=== PATIENT | male | born 1940 | race Caucasian/White ===

== ENCOUNTER 2018-03-26 08:00 | Inpatient (IN) | payer MEDICARE ==
[~2018-03-26] VITALS: Ht 180.3 cm; Wt 100.0 kg
[~2018-03-26 08:00] MED LIST: ATEN-169 PO; EZET10TA14 PO; NAPR-1166 PO; SIMV20TA5 PO
[2018-03-26 10:45] LABS: BASOPHILS % (AUTO) 0.1 % (0-1); EOSINOPHILS % (AUTO) 0 % (0-6); HEMATOCRIT 41.4 % (42.0-52.0); HEMOGLOBIN 14.6 g/dl (14.0-17.9); LYMPHOCYTES # (AUTO) 1.1 X10'3 (1.1-4.8); LYMPHOCYTES % (AUTO) 9.2 % (21-51); MEAN CORPUSCULAR HEMOGLOBIN 30.4 PG (27.0-31.0); MEAN CORPUSCULAR HGB CONC 35.2 % (33.0-36.5); MEAN CORPUSCULAR VOLUME 86.3 FL (78-98); MEAN PLATELET VOLUME 7.6 FL (7.4-10.4); MONOCYTES # (AUTO) 1.4 X10'3 (0-0.9); MONOCYTES % (AUTO) 10.9 % (2-12); NEUTROPHILS # (AUTO) 9.9 X10'3 (1.8-7.7); NEUTROPHILS % (AUTO) 79.8 % (42-75); PLATELET COUNT 205 X10'3 (140-440); RED CELL DISTRIBUTION WIDTH 13.6 % (11.5-14.5); WHITE BLOOD COUNT 12.4 X10'3 (4.5-11.0)
[2018-03-26 10:54] LABS: PARTIAL THROMBOPLASTIN TIME 25 SECONDS (22-32); PROTHROMBIN TIME 10.5 SECONDS (9.0-12.0)
[2018-03-26 10:57] LABS: ALANINE AMINOTRANSFERASE 42 U/L (12-78); ALBUMIN 3.8 G/DL (3.4-5.0); ALBUMIN/GLOBULIN RATIO 1.2 (1.1-1.5); ALKALINE PHOSPHATASE 78 IU/L (46-116); ANION GAP 12 (8-16); ASPARTATE AMINO TRANSFERASE 22 U/L (10-37); BILIRUBIN,TOTAL 1.8 MG/DL (0.1-1.0); BLOOD UREA NITROGEN 18 MG/DL (7-18); BUN/CREATININE RATIO 13.7 (5.4-32.0); CALCIUM 9.3 MG/DL (8.5-10.1); CHLORIDE 105 MMOL/L (99-107); CREATININE 1.31 MG/DL (0.60-1.10); GLUCOSE 125 MG/DL (70-104); POTASSIUM 3.6 MMOL/L (3.5-5.1); SODIUM 139 MMOL/L (135-145); TOTAL CARBON DIOXIDE 22.5 MMOL/L (24-32); eGFR 53 ML/MIN
[2018-03-26 11:01] LABS: TROPONIN I < 0.04 NG/ML (0.0-0.05)
[2018-03-26] MEDS ORDERED: TAMS0.4C32 PO (13:05)
[2018-03-26] MEDS ORDERED: magnesium 4gm in 100ml NS 100 ML IV PRN (13:45)
[2018-03-26] MEDS ORDERED: potassium Cl 20 mEq SR tablet PO PRN ×2 (13:45)
[2018-03-26] MEDS ORDERED: ondansetron/PF 4mg/2ml inj IV PRN (13:45)
[2018-03-26] MEDS ORDERED: mag hydrox/Alum hydrox/simeth 30ml oral suspension PO PRN (13:45)
[2018-03-26] MEDS ORDERED: magnesium Cl slow-release 64mg tablet PO PRN (13:45)
[2018-03-26] MEDS ORDERED: magnesium hydroxide 30ml (MOM) UD suspension PO PRN (13:45)
[2018-03-26] MEDS ORDERED: potassium Cl 40MEQ/NS 500ml 500 ML IV PRN ×2 (13:45)
[2018-03-26] MEDS ORDERED: magnesium 1gm/100ml D5W IVPB 50 ML IV PRN (13:45)
[2018-03-26] MEDS: normal saline 1000ml 1,000 ML IV SCH ×3 (14:51→23:44)
[2018-03-26 16:30] VITALS: BP 124/76
[2018-03-26] MEDS: acetaminophen 325mg tablet PO PRN (17:49)
[2018-03-26 20:00] VITALS: BP_SYST 102; BP_SYST 118; BP_SYST 90; BP_DIAS 65; BP_DIAS 66; BP_DIAS 76
[2018-03-26] MEDS ORDERED: aspirin 325mg tablet PO ONE (20:10)
[2018-03-26] MEDS: heparin, porcine 5000 units/ml vial SQ SCH (20:32)
[2018-03-26] MEDS: atorvastatin 20mg tablet PO SCH (21:34)
[2018-03-26] MEDS: tamsulosin 0.4mg capsule PO SCH (21:34)
[2018-03-26 22:00] VITALS: BP 128/73
[2018-03-27 02:00] VITALS: BP 128/81
[2018-03-27] MEDS: normal saline 1000ml 1,000 ML IV SCH ×5 (02:13→23:06)
[2018-03-27 05:42] LABS: BASOPHILS % (AUTO) 0.3 % (0-1); EOSINOPHILS # (AUTO) 0.1 X10'3 (0-0.9); EOSINOPHILS % (AUTO) 1.5 % (0-6); HEMATOCRIT 36.6 % (42.0-52.0); HEMOGLOBIN 12.6 g/dl (14.0-17.9); LYMPHOCYTES # (AUTO) 1.7 X10'3 (1.1-4.8); LYMPHOCYTES % (AUTO) 19.5 % (21-51); MEAN CORPUSCULAR HEMOGLOBIN 30.2 PG (27.0-31.0); MEAN CORPUSCULAR HGB CONC 34.3 % (33.0-36.5); MEAN CORPUSCULAR VOLUME 87.9 FL (78-98); MEAN PLATELET VOLUME 8.3 FL (7.4-10.4); MONOCYTES # (AUTO) 1.3 X10'3 (0-0.9); MONOCYTES % (AUTO) 15.2 % (2-12); NEUTROPHILS # (AUTO) 5.4 X10'3 (1.8-7.7); NEUTROPHILS % (AUTO) 63.5 % (42-75); PLATELET COUNT 181 X10'3 (140-440); RED BLOOD COUNT 4.16 X10'6 (4.70-6.10); RED CELL DISTRIBUTION WIDTH 13.9 % (11.5-14.5); WHITE BLOOD COUNT 8.5 X10'3 (4.5-11.0)
[2018-03-27 06:00] VITALS: BP 103/63
[2018-03-27 06:06] LABS: ANION GAP 11 (8-16); BLOOD UREA NITROGEN 11 MG/DL (7-18); BUN/CREATININE RATIO 9.7 (5.4-32.0); CALCIUM 8.7 MG/DL (8.5-10.1); CHLORIDE 107 MMOL/L (99-107); CHOL/HDL RATIO 2.8 (0.00-4.99); CHOLESTEROL 117 MG/DL (0-200); CREATININE 1.13 MG/DL (0.60-1.10); GLUCOSE 115 MG/DL (70-104); HDL CHOLESTEROL 42 MG/DL (35-60); LDL CHOLESTEROL 68 MG/DL (50-100); MAGNESIUM 1.4 MG/DL (1.5-2.4); POTASSIUM 3.5 MMOL/L (3.5-5.1); SODIUM 141 MMOL/L (135-145); TOTAL CARBON DIOXIDE 22.9 MMOL/L (24-32); TRIGLYCERIDES 96 MG/DL (20-135); eGFR 63 ML/MIN
[2018-03-27] MEDS: atenolol 25mg tablet PO SCH ×2 (07:37→20:55)
[2018-03-27] MEDS: ezetimibe 10mg tablet PO SCH (07:37)
[2018-03-27] MEDS: heparin, porcine 5000 units/ml vial SQ SCH ×2 (07:38→20:55)
[2018-03-27] MEDS: K and/or MAG REPLACEMENT MC SCH (07:39)
[2018-03-27 10:00] VITALS: BP 128/71
[2018-03-27 12:00] VITALS: BP_SYST 115; BP_SYST 123; BP_SYST 128; BP_DIAS 71; BP_DIAS 75
[2018-03-27] MEDS: ceFAZolin 1GM/D5W- ADD-VANTAGE 50 ML IV SCH ×2 (15:57→23:59)
[2018-03-27] MEDS: acetaminophen 325mg tablet PO PRN (19:40)
[2018-03-27 20:51] VITALS: BP 120/81
[2018-03-27] MEDS: atorvastatin 20mg tablet PO SCH (20:55)
[2018-03-27] MEDS: tamsulosin 0.4mg capsule PO SCH (20:55)
[2018-03-27 22:00] VITALS: BP 124/79
[2018-03-28 02:00] VITALS: BP 131/70
[2018-03-28] MEDS: normal saline 1000ml 1,000 ML IV SCH ×2 (05:44→11:10)
[2018-03-28 06:20] LABS: ALBUMIN 2.9 G/DL (3.4-5.0); ANION GAP 8 (8-16); BLOOD UREA NITROGEN 13 MG/DL (7-18); BUN/CREATININE RATIO 11.3 (5.4-32.0); CALCIUM 8.3 MG/DL (8.5-10.1); CHLORIDE 109 MMOL/L (99-107); CREATININE 1.15 MG/DL (0.60-1.10); GLUCOSE 101 MG/DL (70-104); MAGNESIUM 1.6 MG/DL (1.5-2.4); POTASSIUM 3.8 MMOL/L (3.5-5.1); SODIUM 142 MMOL/L (135-145); TOTAL CARBON DIOXIDE 25.2 MMOL/L (24-32); eGFR 62 ML/MIN
[2018-03-28 07:05] LABS: HEMATOCRIT 37.8 % (42.0-52.0); HEMOGLOBIN 12.8 g/dl (14.0-17.9); MEAN CORPUSCULAR HEMOGLOBIN 30.2 PG (27.0-31.0); MEAN CORPUSCULAR HGB CONC 33.8 % (33.0-36.5); MEAN CORPUSCULAR VOLUME 89.2 FL (78-98); RED BLOOD COUNT 4.24 X10'6 (4.70-6.10); WHITE BLOOD COUNT 6.5 X10'3 (4.5-11.0)
[2018-03-28 07:06] LABS: BASOPHILS % (AUTO) 0.6 % (0-1); EOSINOPHILS # (AUTO) 0.2 X10'3 (0-0.9); EOSINOPHILS % (AUTO) 3.3 % (0-6); LYMPHOCYTES # (AUTO) 1.4 X10'3 (1.1-4.8); MEAN PLATELET VOLUME 7.8 FL (7.4-10.4); MONOCYTES # (AUTO) 0.9 X10'3 (0-0.9); MONOCYTES % (AUTO) 13.7 % (2-12); NEUTROPHILS # (AUTO) 3.9 X10'3 (1.8-7.7); NEUTROPHILS % (AUTO) 60.4 % (42-75); PLATELET COUNT 193 X10'3 (140-440); RED CELL DISTRIBUTION WIDTH 13.6 % (11.5-14.5)
[2018-03-28] MEDS: K and/or MAG REPLACEMENT MC SCH (07:47)
[2018-03-28] MEDS: atenolol 25mg tablet PO SCH (07:47)
[2018-03-28] MEDS: ezetimibe 10mg tablet PO SCH (07:52)
[2018-03-28] MEDS: heparin, porcine 5000 units/ml vial SQ SCH (07:53)
[2018-03-28] MEDS: ceFAZolin 1GM/D5W- ADD-VANTAGE 50 ML IV SCH (07:53)
[2018-03-28 10:00] VITALS: BP 112/62
[2018-03-28] MEDS ORDERED: CEPH250T PO (12:23)
[2018-03-28] MEDS ORDERED: ASPI-1265 PO (12:24)
[2018-03-28] MEDS ORDERED: lactobacillus rhamnosus 10,000 MMU CELLS/CAPSULE PO SCH (20:00)
== END 2018-03-28 13:31 | disposition home or self-care (01) | DRG 603 ==
LOC: ER 08:00 → ED HOLD 12:24 → ORTHO 4S 15:43
PROVIDERS: ADMIT Family Medicine; ATTEND Internal Medicine
DX: L03.114 Cellulitis of left upper limb (principal); M19.032 Primary osteoarthritis, left wrist; E78.00 Pure hypercholesterolemia, unspecified; E78.5 Hyperlipidemia, unspecified; N40.0 Benign prostatic hyperplasia without lower urinary tract symptoms; G89.29 Other chronic pain; I10 Essential (primary) hypertension; R41.0 Disorientation, unspecified; I25.10 Atherosclerotic heart disease of native coronary artery without angina pectoris; I25.2 Old myocardial infarction; Z79.82 Long term (current) use of aspirin; Z79.899 Other long term (current) drug therapy; Z86.73 Personal history of transient ischemic attack (TIA), and cerebral infarction without residual deficits
CPT/HCPCS: 36415; 70450; 70551; 71045; 73110; 80048; 80053; 80061; 82948; 83735; 84484; 85025; 85610; 85730; 87070; 93005; 93306; 93880; 97116; 97161; 97530; 99285; J0690; J1644; J7030

== ENCOUNTER 2020-10-14 16:26 | Inpatient (IN) | payer BC, MEDICARE ==
[~2020-10-14] VITALS: Ht 180.3 cm; Wt 91.8 kg
[~2020-10-14 16:26] MED LIST changes: -EZET10TA14 PO; +EZET10TA6 PO; -NAPR-1166 PO; +SIMV-42 PO; -SIMV20TA5 PO; +TAMS0.4C32 PO
--- NOTE | 2020-10-14 16:42 | NUR ---
Dr. Carter, Ru RT, Danae RN, Blade RN, Pushpa RN at bedside 1641 8 etomidate, Hr 202, 84/58, RR 12, 98% 5L 1642 Syncronized shock 100J delivered by Dr. Carter, NSR 69, RR 8, sp02 98% 5L, BP 91/60 1644 EKG Obtained 1648 HR SB 57, Sp02 95% on 5L, pt responsive to voice
[2020-10-14] MEDS ORDERED: normal saline 1000ML IV soln IVB ONE (16:50)
[2020-10-14] MEDS ORDERED: amiodarone/D5 360MG/200ML BAG 200 ML IV ONE ×2 (16:50→17:20)
[2020-10-14] MEDS ORDERED: aspirin 81mg tab.chew PO ONE (16:50)
[2020-10-14] MEDS ORDERED: amiodarone 150mg/dext, iso-os 100 ML IV ONE (16:50)
[2020-10-14 16:58] LABS: BASOPHILS # (AUTO) 0.1 X10'3 (0-0.2); BASOPHILS % (AUTO) 0.5 % (0-1); EOSINOPHILS # (AUTO) 0.2 X10'3 (0-0.9); EOSINOPHILS % (AUTO) 2.1 % (0-6); HEMATOCRIT 40.9 % (42.0-52.0); HEMOGLOBIN 13.3 g/dl (14.0-17.9); LYMPHOCYTES % (AUTO) 35.4 % (21-51); MEAN CORPUSCULAR HEMOGLOBIN 29.1 PG (27.0-31.0); MEAN CORPUSCULAR HGB CONC 32.5 g/dL (33.0-36.5); MEAN CORPUSCULAR VOLUME 89.6 FL (78-98); MEAN PLATELET VOLUME 8.5 FL (7.4-10.4); PLATELET COUNT 238 X10'3 (140-440); RED BLOOD COUNT 4.57 X10'6 (4.70-6.10); RED CELL DISTRIBUTION WIDTH 14.6 % (11.5-14.5); WHITE BLOOD COUNT 11.3 X10'3 (4.5-11.0)
[2020-10-14] MEDS ORDERED: etomidate 2mg/ml inj. ONE (17:00)
[2020-10-14 17:13] LABS: PARTIAL THROMBOPLASTIN TIME 23 SECONDS (22-32)
[2020-10-14 17:15] LABS: ALANINE AMINOTRANSFERASE 53 U/L (12-78); ALBUMIN 3.5 G/DL (3.4-5.0); ALBUMIN/GLOBULIN RATIO 1.1 (1.1-1.5); ALKALINE PHOSPHATASE 72 IU/L (46-116); ANION GAP 10 (8-16); ASPARTATE AMINO TRANSFERASE 53 U/L (10-37); BILIRUBIN,TOTAL 0.6 MG/DL (0.1-1.0); BLOOD UREA NITROGEN 18 MG/DL (7-18); BUN/CREATININE RATIO 14.1 (5.4-32.0); CALCIUM 8.6 MG/DL (8.5-10.1); CHLORIDE 108 MMOL/L (99-107); CREATININE 1.28 MG/DL (0.60-1.10); GLUCOSE 148 MG/DL (70-104); POTASSIUM 3.3 MMOL/L (3.5-5.1); SODIUM 143 MMOL/L (135-145); TOTAL CARBON DIOXIDE 25.1 MMOL/L (24-32); TOTAL PROTEIN 6.6 G/DL (6.4-8.2); eGFR 54 ML/MIN
[2020-10-14 17:22] LABS: MAGNESIUM 1.6 MG/DL (1.5-2.4)
--- NOTE | 2020-10-14 18:23 | NUR ---
called pharmacist regarding pt pottasium to be verified ,as per pharmacist winnie she will verify.
--- NOTE | 2020-10-14 18:36 | NUR ---
PATIENT UP TO BEDSIDE COMMODE WITH MINIMAL ASSISTANCE. HELPED BACK INTO GURNEY AND HOOKED BACK UP TO MONITOR.
[2020-10-14] MEDS: potassium Cl 10 mEq/100mL bag IV SCH ×2 (18:56→19:20)
[2020-10-14] MEDS ORDERED: DONE-46 PO (19:04)
--- NOTE | 2020-10-14 19:37 | NUR ---
pt calling for pdated primary rn, norman, talking with and updated that pt to be admitted.
[2020-10-14] MEDS ORDERED: magnesium 4gm in 100ml NS 100 ML IV PRN (19:55)
[2020-10-14] MEDS: amiodarone/D5 360MG/200ML BAG 200 ML IV SCH ×2 (19:55→22:58)
[2020-10-14] MEDS ORDERED: ondansetron/PF 4mg/2ml inj IV PRN (19:55)
[2020-10-14] MEDS ORDERED: magnesium hydroxide 30ml (MOM) UD suspension PO PRN (19:55)
[2020-10-14] MEDS ORDERED: magnesium 2GM in 50ml NS 50 ML IV PRN (19:55)
[2020-10-14] MEDS ORDERED: potassium Cl 20 mEq SR tablet PO PRN ×2 (19:55)
[2020-10-14] MEDS ORDERED: mag hydrox/Alum hydrox/simeth 30ml oral suspension PO PRN (19:55)
[2020-10-14] MEDS ORDERED: acetaminophen 325mg tablet PO PRN ×2 (19:55)
[2020-10-14] MEDS ORDERED: morphine 2 MG/ML inj. syringe IV PRN ×2 (19:55)
[2020-10-14] MEDS ORDERED: potassium Cl 40MEQ/1/2NS 520ml 520 ML IV PRN ×2 (19:55)
[2020-10-14] MEDS ORDERED: enoxaparin 40mg/0.4ml syringe SQ SCH (20:00)
[2020-10-14] MEDS ORDERED: potassium Cl 20 mEq SR tablet PO STA (20:13)
--- NOTE | 2020-10-14 20:15 | NUR ---
PT REPORTS BURNING WHEN IV POTASSIUM IS RINNING. 1ST DOSE GIVEN. PER DR CAPPS OK TO CANCEL 2ND POTASSIUM IV ANDD GIVE PO.
[2020-10-14] MEDS: K and/or MAG REPLACEMENT MC SCH (20:36)
[2020-10-14] MEDS ORDERED: atorvastatin 20mg tablet PO SCH (21:00)
[2020-10-14] MEDS: tamsulosin 0.4mg capsule PO SCH (21:14)
[2020-10-14] MEDS: atenolol 50mg tablet PO SCH (21:14)
[2020-10-14 22:00] VITALS: BP 119/63
--- NOTE | 2020-10-14 22:00 | NUR ---
Patient in room MED 310. I have received report from CINTIA Gibbs and had the opportunity to ask questions and assume patient care.
[2020-10-14] MEDS ORDERED: heparin 10,000 units/1 ML INJ IV ONE (22:20)
[2020-10-14] MEDS ORDERED: aminophylline 250mg/10ml inj. IV PRN (22:20)
[2020-10-14] MEDS ORDERED: metoprolol tartrate 1mg/ml inj IV PRN (22:20)
[2020-10-14] MEDS ORDERED: nitroGLYCERIN 0.4mg SUBLingual tab SL PRN (22:20)
[2020-10-14] MEDS: heparin 25,000 UNIT/250ml bag 250 ML IV SCH (23:19)
[2020-10-15] VITALS (7 sets, daily range): BP systolic 112–133; BP diastolic 60–85
--- NOTE | 2020-10-15 04:53 | NUR ---
Pt. slept good,no companies.We will continue with pt. care.
[2020-10-15] MEDS ORDERED: regadenoson 0.4mg/5ml syringe IV ONE (06:00)
--- NOTE | 2020-10-15 06:21 | NUR ---
Problems reprioritized. Patient report given, questions answered & plan of care reviewed with CINTIA Chawla.
[2020-10-15 06:25] LABS: BASOPHILS % (AUTO) 0.3 % (0-1); EOSINOPHILS # (AUTO) 0.1 X10'3 (0-0.9); EOSINOPHILS % (AUTO) 1.5 % (0-6); HEMOGLOBIN 12.2 g/dl (14.0-17.9); LYMPHOCYTES # (AUTO) 1.5 X10'3 (1.1-4.8); LYMPHOCYTES % (AUTO) 17.4 % (21-51); MEAN CORPUSCULAR HEMOGLOBIN 29.9 PG (27.0-31.0); MEAN CORPUSCULAR HGB CONC 33.9 g/dL (33.0-36.5); MEAN CORPUSCULAR VOLUME 88.3 FL (78-98); MEAN PLATELET VOLUME 8.3 FL (7.4-10.4); MONOCYTES # (AUTO) 0.8 X10'3 (0-0.9); MONOCYTES % (AUTO) 9.2 % (2-12); NEUTROPHILS # (AUTO) 6.2 X10'3 (1.8-7.7); NEUTROPHILS % (AUTO) 71.6 % (42-75); PLATELET COUNT 157 X10'3 (140-440); RED BLOOD COUNT 4.08 X10'6 (4.70-6.10); RED CELL DISTRIBUTION WIDTH 14.1 % (11.5-14.5); WHITE BLOOD COUNT 8.6 X10'3 (4.5-11.0)
[2020-10-15 06:34] LABS: ALANINE AMINOTRANSFERASE 47 U/L (12-78); ALBUMIN 3.1 G/DL (3.4-5.0); ALBUMIN/GLOBULIN RATIO 1.1 (1.1-1.5); ALKALINE PHOSPHATASE 63 IU/L (46-116); ANION GAP 8 (8-16); ASPARTATE AMINO TRANSFERASE 44 U/L (10-37); BILIRUBIN,TOTAL 0.6 MG/DL (0.1-1.0); BLOOD UREA NITROGEN 16 MG/DL (7-18); BUN/CREATININE RATIO 15.4 (5.4-32.0); CALCIUM 8.3 MG/DL (8.5-10.1); CHLORIDE 110 MMOL/L (99-107); CREATININE 1.04 MG/DL (0.60-1.10); GLUCOSE 126 MG/DL (70-104); POTASSIUM 3.6 MMOL/L (3.5-5.1); SODIUM 142 MMOL/L (135-145); TOTAL CARBON DIOXIDE 24.5 MMOL/L (24-32); TOTAL PROTEIN 5.8 G/DL (6.4-8.2); eGFR 69 ML/MIN
[2020-10-15 06:39] LABS: MAGNESIUM 1.6 MG/DL (1.5-2.4)
--- NOTE | 2020-10-15 06:41 | NUR ---
CRITICAL TROP 12HOUR RECEIVED = 2.92
--- NOTE | 2020-10-15 06:46 | NUR ---
Dr. Chavez paged: PAGER ID: [phone] MESSAGE: [phone]: MORIAH HAN 12 HOUR TROP UP SLIGHTLY 2.92. K 3.6, MG 1.6. do you want us to use cardiac replacement and keep k >4, mg > 2? nurse Chasity [phone]
[2020-10-15] MEDS: donepezil 5mg tablet PO SCH (07:40)
[2020-10-15] MEDS: amiodarone/D5 360MG/200ML BAG 200 ML IV SCH ×4 (07:41→22:50)
--- NOTE | 2020-10-15 07:47 | NUR ---
Patient in room MED 310. I have received report from CINTIA Ordonez and had the opportunity to ask questions and assume patient care.
[2020-10-15] MEDS: K and/or MAG REPLACEMENT MC SCH ×2 (08:00→20:28)
--- NOTE | 2020-10-15 08:17 | NUR ---
Dr. Contreras paged. PAGER ID: [phone] MESSAGE: [phone]: MORIAH - Unable to do grady, trops still trending up, s/p cardiovert in ED last night. ?repeat trop in a few hours or r u getting cardiac consult? ty nurse Chasity [phone]
[2020-10-15 09:49] LABS: CHOL/HDL RATIO 2.8 (0.00-4.99); CHOLESTEROL 119 MG/DL (0-200); HDL CHOLESTEROL 43 MG/DL (35-60); LDL CHOLESTEROL 64 MG/DL (50-100); TRIGLYCERIDES 95 MG/DL (20-135)
[2020-10-15] MEDS: aspirin 81mg tablet.DR PO SCH (11:10)
[2020-10-15] MEDS: atenolol 50mg tablet PO SCH ×2 (11:10→20:00)
[2020-10-15] MEDS ORDERED: EZET10TA6 PO (12:40)
[2020-10-15] MEDS ORDERED: magnesium 4gm in 100ml NS 100 ML IV PRN (13:25)
[2020-10-15] MEDS: potassium Cl 20 mEq SR tablet PO PRN ×2 (14:11→20:18)
[2020-10-15] MEDS: magnesium Cl slow-release 64mg tablet PO PRN ×2 (14:12→20:23)
[2020-10-15] MEDS ORDERED: ondansetron 4mg rapidly disintigrating tab PO PRN (16:05)
--- NOTE | 2020-10-15 17:57 | NUR ---
on shift pt. has needed reorienting to call light. pt. has been trying to get out of bed on his own and has been educated on having IV's in both arms. pt. has bed alarm on.
--- NOTE | 2020-10-15 18:06 | NUR ---
Patient in room MED 310. I have received report from Sera CHAMBERLAIN and had the opportunity to ask questions and assume patient care.
--- NOTE | 2020-10-15 18:25 | NUR ---
Problems reprioritized. Patient report given, questions answered & plan of care reviewed with CINTIA Soriano.
--- NOTE | 2020-10-15 19:01 | NUR ---
I have reviewed and agree with all interventions, assessments performed and documented by CINTIA Garza.
[2020-10-15] MEDS: tamsulosin 0.4mg capsule PO SCH (20:14)
[2020-10-15] MEDS: atorvastatin 20mg tablet PO SCH (20:14)
[2020-10-15] MEDS: heparin 25,000 UNIT/250ml bag 250 ML IV SCH ×2 (20:34→22:57)
[2020-10-15] MEDS: heparin 10,000 units/1 ML INJ IV PRN (20:40)
[2020-10-16] VITALS (18 sets, daily range): BP systolic 78–148; BP diastolic 39–76
--- NOTE | 2020-10-16 01:50 | NUR ---
5 BEAT RUN VTA, PATIENT ASYMPTOMATIC, CALLED TO MD, NO NEW ORDERS AT THIS TIME. LUCIANO CHAMBERLAIN
[2020-10-16 04:38] LABS: BASOPHILS % (AUTO) 0.4 % (0-1); EOSINOPHILS % (AUTO) 0.5 % (0-6); HEMATOCRIT 39.6 % (42.0-52.0); LYMPHOCYTES # (AUTO) 1.6 X10'3 (1.1-4.8); LYMPHOCYTES % (AUTO) 18.6 % (21-51); MEAN CORPUSCULAR HEMOGLOBIN 29.4 PG (27.0-31.0); MEAN CORPUSCULAR HGB CONC 32.8 g/dL (33.0-36.5); MEAN CORPUSCULAR VOLUME 89.7 FL (78-98); MEAN PLATELET VOLUME 8.4 FL (7.4-10.4); MONOCYTES # (AUTO) 0.9 X10'3 (0-0.9); NEUTROPHILS % (AUTO) 70.5 % (42-75); PLATELET COUNT 169 X10'3 (140-440); RED BLOOD COUNT 4.41 X10'6 (4.70-6.10); RED CELL DISTRIBUTION WIDTH 14.3 % (11.5-14.5); WHITE BLOOD COUNT 8.6 X10'3 (4.5-11.0)
[2020-10-16 04:52] LABS: ALANINE AMINOTRANSFERASE 44 U/L (12-78); ALBUMIN 3.4 G/DL (3.4-5.0); ALBUMIN/GLOBULIN RATIO 1.1 (1.1-1.5); ALKALINE PHOSPHATASE 69 IU/L (46-116); ANION GAP 9 (8-16); ASPARTATE AMINO TRANSFERASE 38 U/L (10-37); BLOOD UREA NITROGEN 13 MG/DL (7-18); BUN/CREATININE RATIO 12.5 (5.4-32.0); CALCIUM 8.9 MG/DL (8.5-10.1); CHLORIDE 106 MMOL/L (99-107); CREATININE 1.04 MG/DL (0.60-1.10); GLUCOSE 167 MG/DL (70-104); MAGNESIUM 1.6 MG/DL (1.5-2.4); SODIUM 141 MMOL/L (135-145); TOTAL CARBON DIOXIDE 26.3 MMOL/L (24-32); TOTAL PROTEIN 6.5 G/DL (6.4-8.2); eGFR 69 ML/MIN
[2020-10-16] MEDS: heparin 10,000 units/1 ML INJ IV PRN (05:22)
--- NOTE | 2020-10-16 06:15 | NUR ---
Patient in room MED 310. I have received report from erendira hernadez and had the opportunity to ask questions and assume patient care.
--- NOTE | 2020-10-16 06:47 | NUR ---
PATIENT HAD MULTIPLE EPISODES OF PULLING OUT IVS, HEPARIN AND AMIO INFUSING; CHIQUI HAS ALZHEIMERS, NEEDS REPEAT REMINDERS; SITTER REQUESTED, ORDER OBTAINED FROM MD MALDONADO. WILL CONTINUE TO MONITOR CLOSELY. LUCIANO krishna
--- NOTE | 2020-10-16 06:49 | NUR ---
Problems reprioritized. Patient report given, questions answered & plan of care reviewed with VISH CHAMBERLAIN.
[2020-10-16] MEDS ORDERED: magnesium 2GM in 50ml NS 50 ML IV ONE (07:50)
[2020-10-16] MEDS: K and/or MAG REPLACEMENT MC SCH ×2 (08:00→19:48)
[2020-10-16] MEDS ORDERED: enoxaparin 30mg/0.3ml syringe SUBCUT SCH (08:00)
[2020-10-16] MEDS: atenolol 50mg tablet PO SCH ×2 (08:00→19:44)
[2020-10-16] MEDS: aspirin 81mg tablet.DR PO SCH (08:12)
[2020-10-16] MEDS: amiodarone 200mg tablet PO SCH (08:13)
[2020-10-16] MEDS: donepezil 5mg tablet PO SCH (08:13)
--- NOTE | 2020-10-16 09:30 | NUR ---
PT SENT FOR MOLLY SCAN,TELE NOTIFIED ON TELE 2
--- NOTE | 2020-10-16 11:00 | NUR ---
RECEIVED CALL FROM [employer] THAT PT WAS IN V-TACH,CALLED DOWN TO [facility] ,ADVISED PT WAS AWAKE AN DTALKING,RAPID RESPONSE CALLED,ARRIVED IN NUC MED TO FIND RR TEAM IN PLACE, AT BEDSIDE,PT HEART [id number],BP 80/40,PT AWAKE AND RESPONSIVE,RECEIVED VERBAL ORDER FROM FOR 2MG VERSED,OBTAINED FROM C-SCAN OMNICELL,ADMINISTERED AT 1110,PRIOR TO 1 SHOCK WITH 100 JOULES,AFTER WHICH PT CONVERTED TO NSR BP 90/40 PRIOR TO TRANSPORT BACK TO ROOM 310,
[2020-10-16] MEDS ORDERED: midazolam 2 mg/2 ml injection ONE ×2 (11:09→11:52)
[2020-10-16] MEDS ORDERED: MIDAZolam 1mg/ml 10ml vial IV ONE (11:10)
[2020-10-16] MEDS ORDERED: fentaNYL/PF 50MCG/1 ML 2ML syringe ONE (11:52)
[2020-10-16] MEDS ORDERED: iohexol 350MG/ML 100ml bottle IV ONE ×2 (11:53→12:49)
[2020-10-16] MEDS ORDERED: LIDOcaine 1% (10mg/ml)w/preservative injection 20ml MDV ONE (11:53)
--- NOTE | 2020-10-16 12:20 | NUR ---
pt prepped and sent to r and d lab technician,consent obtained from ,report given to r and d lab technician erendira rodriguez
[2020-10-16] MEDS ORDERED: heparin 1,000unit/ml 10ml vial 10 ML ONE (12:49)
[2020-10-16] MEDS ORDERED: ticagrelor 90mg tablet ONE (13:08)
[2020-10-16] MEDS ORDERED: atropine 0.1mg/ml 10ml syringe ONE (13:17)
--- NOTE | 2020-10-16 13:30 | NUR ---
received report from landscaping and groundskeeping laborer rn right groin perc closed,pt aware to lie flat 4 hours, groin site clear,sitter at bedside, stent placed to mid lac per landscaping and groundskeeping laborer rn,pt cont in NSR,rate 60-70s,see v/s flow sheet,pt calm,compliant
[2020-10-16] MEDS ORDERED: nitroGLYCERIN 0.4mg SUBLingual tab SL PRN (14:10)
[2020-10-16] MEDS ORDERED: OXAZEpam 15mg capsule PO PRN (14:10)
[2020-10-16] MEDS ORDERED: proCHLORperazine 10 MG/2 ml inj IV PRN (14:10)
[2020-10-16] MEDS ORDERED: HYDROcodone/acetaminophen 10/325mg tab PO PRN (14:10)
[2020-10-16] MEDS ORDERED: HYDROcodone/acetaminophen 5mg/325mg tablet PO PRN (14:10)
[2020-10-16] MEDS: amiodarone/D5 360MG/200ML BAG 200 ML IV SCH (14:47)
--- NOTE | 2020-10-16 18:00 | NUR ---
Patient in room MED 310. I have received report from VISH CHAMBERLAIN and had the opportunity to ask questions and assume patient care.
--- NOTE | 2020-10-16 18:41 | NUR ---
Problems reprioritized. Patient report given, questions answered & plan of care reviewed with .erendira hernadez
[2020-10-16] MEDS: magnesium Cl slow-release 64mg tablet PO PRN (19:44)
[2020-10-16] MEDS: atorvastatin 20mg tablet PO SCH (19:47)
[2020-10-16] MEDS: tamsulosin 0.4mg capsule PO SCH (19:48)
[2020-10-16] MEDS: ticagrelor 90mg tablet PO SCH (20:00)
[2020-10-17] VITALS (8 sets, daily range): BP systolic 99–142; BP diastolic 55–79
[2020-10-17] MEDS: amiodarone/D5 360MG/200ML BAG 200 ML IV SCH (01:07)
--- NOTE | 2020-10-17 06:08 | NUR ---
Problems reprioritized. Patient report given, questions answered & plan of care reviewed with Misa CHAMBERLAIN.
--- NOTE | 2020-10-17 06:15 | NUR ---
Patient in room MED 310. I have received report from satya krishna and had the opportunity to ask questions and assume patient care.
[2020-10-17 07:01] LABS: BASOPHILS % (AUTO) 0.2 % (0-1); EOSINOPHILS # (AUTO) 0.1 X10'3 (0-0.9); EOSINOPHILS % (AUTO) 0.5 % (0-6); HEMATOCRIT 38.9 % (42.0-52.0); HEMOGLOBIN 13.2 g/dl (14.0-17.9); LYMPHOCYTES % (AUTO) 10.7 % (21-51); MEAN CORPUSCULAR VOLUME 88.1 FL (78-98); MEAN PLATELET VOLUME 8.2 FL (7.4-10.4); MONOCYTES # (AUTO) 1.1 X10'3 (0-0.9); MONOCYTES % (AUTO) 11.9 % (2-12); NEUTROPHILS # (AUTO) 7.2 X10'3 (1.8-7.7); NEUTROPHILS % (AUTO) 76.7 % (42-75); PLATELET COUNT 171 X10'3 (140-440); RED BLOOD COUNT 4.42 X10'6 (4.70-6.10); RED CELL DISTRIBUTION WIDTH 14.2 % (11.5-14.5); WHITE BLOOD COUNT 9.4 X10'3 (4.5-11.0)
[2020-10-17 07:17] LABS: ALANINE AMINOTRANSFERASE 33 U/L (12-78); ALBUMIN 3.2 G/DL (3.4-5.0); ALKALINE PHOSPHATASE 71 IU/L (46-116); ANION GAP 7 (8-16); ASPARTATE AMINO TRANSFERASE 25 U/L (10-37); BILIRUBIN,TOTAL 1.3 MG/DL (0.1-1.0); BLOOD UREA NITROGEN 12 MG/DL (7-18); BUN/CREATININE RATIO 11.3 (5.4-32.0); CALCIUM 8.7 MG/DL (8.5-10.1); CHLORIDE 105 MMOL/L (99-107); CREATININE 1.06 MG/DL (0.60-1.10); GLUCOSE 130 MG/DL (70-104); MAGNESIUM 1.9 MG/DL (1.5-2.4); POTASSIUM 3.9 MMOL/L (3.5-5.1); SODIUM 139 MMOL/L (135-145); TOTAL CARBON DIOXIDE 26.7 MMOL/L (24-32); TOTAL PROTEIN 6.4 G/DL (6.4-8.2); eGFR 67 ML/MIN
[2020-10-17] MEDS: atenolol 50mg tablet PO SCH (08:00)
[2020-10-17] MEDS: amiodarone 200mg tablet PO SCH (08:30)
[2020-10-17] MEDS: donepezil 5mg tablet PO SCH (08:30)
[2020-10-17] MEDS: aspirin 81mg tablet.DR PO SCH (08:30)
[2020-10-17] MEDS: ticagrelor 90mg tablet PO SCH ×2 (08:31→21:17)
[2020-10-17] MEDS: aspirin 81mg tab.chew PO SCH (08:31)
[2020-10-17] MEDS: K and/or MAG REPLACEMENT MC SCH ×2 (08:37→20:00)
--- NOTE | 2020-10-17 18:00 | NUR ---
Patient in room MED 310. I have received report from Misa CHAMBERLAIN and had the opportunity to ask questions and assume patient care.
--- NOTE | 2020-10-17 18:27 | NUR ---
Problems reprioritized. Patient report given, questions answered & plan of care reviewed with erendira hernadez.
[2020-10-17] MEDS: magnesium Cl slow-release 64mg tablet PO PRN (21:17)
[2020-10-17] MEDS: atorvastatin 20mg tablet PO SCH (21:18)
[2020-10-17] MEDS: tamsulosin 0.4mg capsule PO SCH (21:18)
[2020-10-18 02:00] VITALS: BP 104/65
[2020-10-18 06:00] VITALS: BP 113/70
--- NOTE | 2020-10-18 06:02 | NUR ---
Problems reprioritized. Patient report given, questions answered & plan of care reviewed with Misa CHAMBERLAIN.
--- NOTE | 2020-10-18 06:19 | NUR ---
Patient in room MED 310. I have received report from erendira hernadez and had the opportunity to ask questions and assume patient care.
[2020-10-18 07:26] LABS: BASOPHILS % (AUTO) 0.3 % (0-1); EOSINOPHILS % (AUTO) 0.6 % (0-6); HEMOGLOBIN 13.3 g/dl (14.0-17.9); LYMPHOCYTES # (AUTO) 0.9 X10'3 (1.1-4.8); LYMPHOCYTES % (AUTO) 11.4 % (21-51); MEAN CORPUSCULAR HEMOGLOBIN 29.7 PG (27.0-31.0); MEAN CORPUSCULAR HGB CONC 33.3 g/dL (33.0-36.5); MEAN PLATELET VOLUME 8.4 FL (7.4-10.4); MONOCYTES # (AUTO) 1.1 X10'3 (0-0.9); MONOCYTES % (AUTO) 13.7 % (2-12); NEUTROPHILS # (AUTO) 5.8 X10'3 (1.8-7.7); PLATELET COUNT 176 X10'3 (140-440); RED BLOOD COUNT 4.49 X10'6 (4.70-6.10); RED CELL DISTRIBUTION WIDTH 14.2 % (11.5-14.5); WHITE BLOOD COUNT 7.9 X10'3 (4.5-11.0)
[2020-10-18] MEDS: K and/or MAG REPLACEMENT MC SCH ×2 (08:00→20:00)
[2020-10-18] MEDS: atenolol 25mg tablet PO SCH (08:00)
[2020-10-18 08:08] LABS: ALANINE AMINOTRANSFERASE 30 U/L (12-78); ALBUMIN 3.3 G/DL (3.4-5.0); ALBUMIN/GLOBULIN RATIO 1.1 (1.1-1.5); ALKALINE PHOSPHATASE 71 IU/L (46-116); ANION GAP 10 (8-16); ASPARTATE AMINO TRANSFERASE 21 U/L (10-37); BLOOD UREA NITROGEN 14 MG/DL (7-18); BUN/CREATININE RATIO 12.8 (5.4-32.0); CALCIUM 8.8 MG/DL (8.5-10.1); CHLORIDE 106 MMOL/L (99-107); CREATININE 1.09 MG/DL (0.60-1.10); GLUCOSE 113 MG/DL (70-104); MAGNESIUM 1.8 MG/DL (1.5-2.4); POTASSIUM 3.8 MMOL/L (3.5-5.1); SODIUM 141 MMOL/L (135-145); TOTAL CARBON DIOXIDE 24.8 MMOL/L (24-32); TOTAL PROTEIN 6.4 G/DL (6.4-8.2); eGFR 65 ML/MIN
[2020-10-18] MEDS: aspirin 81mg tablet.DR PO SCH (08:30)
[2020-10-18] MEDS: donepezil 5mg tablet PO SCH (08:45)
[2020-10-18] MEDS: aspirin 81mg tab.chew PO SCH (08:45)
[2020-10-18] MEDS: ticagrelor 90mg tablet PO SCH ×2 (08:46→20:48)
[2020-10-18] MEDS: amiodarone 200mg tablet PO SCH (08:47)
--- NOTE | 2020-10-18 10:08 | NUR ---
Initial: Pt admit for ventricular tachycardia and NSTEMI. Pt s/p angiogram and stent placement in mid LAD per MD note. Pt documented as confused and A/O x 2, with a sitter at bedside. Pt on a heart healthy diet documented with 75-100% PO intake meeting estimated nutrient needs. LBM 10/17 documented as moderate in size. No nutrition intervention warranted at this time. Will continue to follow and make recommendations as appropriate. Recommendations: 1) Continue heart healthy diet 2) Monitor need for additional protein for satiety 3) Bowel care per rx 4) Scaled weights per rx Addendum: 10/18/20 at [address] Amended: Links added.
[2020-10-18 11:00] VITALS: BP 110/69
[2020-10-18] MEDS ORDERED: magnesium 2GM in 50ml NS 50 ML IV PRN (14:00)
[2020-10-18 15:00] VITALS: BP 129/69
[2020-10-18 18:00] VITALS: BP 129/98
--- NOTE | 2020-10-18 18:20 | NUR ---
Problems reprioritized. Patient report given, questions answered & plan of care reviewed with erendira valadez.
[2020-10-18] MEDS: atorvastatin 20mg tablet PO SCH (20:48)
[2020-10-18] MEDS: tamsulosin 0.4mg capsule PO SCH (20:48)
[2020-10-18 22:00] VITALS: BP 120/65
[2020-10-19 02:00] VITALS: BP 114/54
[2020-10-19 06:24] LABS: BASOPHILS % (AUTO) 0.3 % (0-1); EOSINOPHILS # (AUTO) 0.1 X10'3 (0-0.9); EOSINOPHILS % (AUTO) 1.3 % (0-6); HEMATOCRIT 39.6 % (42.0-52.0); HEMOGLOBIN 13.4 g/dl (14.0-17.9); LYMPHOCYTES % (AUTO) 11.4 % (21-51); MEAN CORPUSCULAR HGB CONC 33.9 g/dL (33.0-36.5); MEAN CORPUSCULAR VOLUME 88.5 FL (78-98); MEAN PLATELET VOLUME 8.4 FL (7.4-10.4); MONOCYTES # (AUTO) 1.2 X10'3 (0-0.9); MONOCYTES % (AUTO) 12.9 % (2-12); NEUTROPHILS # (AUTO) 6.8 X10'3 (1.8-7.7); NEUTROPHILS % (AUTO) 74.1 % (42-75); PLATELET COUNT 198 X10'3 (140-440); RED BLOOD COUNT 4.48 X10'6 (4.70-6.10); RED CELL DISTRIBUTION WIDTH 14.6 % (11.5-14.5); WHITE BLOOD COUNT 9.2 X10'3 (4.5-11.0)
--- NOTE | 2020-10-19 06:41 | NUR ---
Patient in room MED 310. I have received report from Jazmine CHAMBERLAIN and had the opportunity to ask questions and assume patient care.
[2020-10-19 06:42] LABS: ALANINE AMINOTRANSFERASE 31 U/L (12-78); ALBUMIN 3.2 G/DL (3.4-5.0); ALKALINE PHOSPHATASE 74 IU/L (46-116); ANION GAP 9 (8-16); ASPARTATE AMINO TRANSFERASE 17 U/L (10-37); BILIRUBIN,TOTAL 1.7 MG/DL (0.1-1.0); BLOOD UREA NITROGEN 19 MG/DL (7-18); BUN/CREATININE RATIO 15.4 (5.4-32.0); CALCIUM 8.5 MG/DL (8.5-10.1); CHLORIDE 105 MMOL/L (99-107); CREATININE 1.23 MG/DL (0.60-1.10); GLUCOSE 108 MG/DL (70-104); MAGNESIUM 1.9 MG/DL (1.5-2.4); POTASSIUM 3.6 MMOL/L (3.5-5.1); SODIUM 140 MMOL/L (135-145); TOTAL CARBON DIOXIDE 26.5 MMOL/L (24-32); TOTAL PROTEIN 6.4 G/DL (6.4-8.2); eGFR 57 ML/MIN
[2020-10-19] MEDS: K and/or MAG REPLACEMENT MC SCH (08:00)
[2020-10-19 08:15] VITALS: BP 114/54
[2020-10-19] MEDS: amiodarone 200mg tablet PO SCH (08:49)
[2020-10-19] MEDS: atenolol 25mg tablet PO SCH (08:51)
[2020-10-19] MEDS: ticagrelor 90mg tablet PO SCH (08:52)
[2020-10-19] MEDS: aspirin 81mg tab.chew PO SCH (08:52)
[2020-10-19] MEDS: donepezil 5mg tablet PO SCH (08:52)
[2020-10-19] MEDS ORDERED: ASPI-1265 PO (10:11)
[2020-10-19] MEDS ORDERED: AMIO200T67 PO (10:11)
[2020-10-19] MEDS ORDERED: TICA90TA PO (10:11)
[2020-10-19] MEDS ORDERED: NITR0.4T51 SL (10:11)
[2020-10-19 11:00] VITALS: BP 133/79
[2020-10-19] MEDS ORDERED: amiodarone 200mg tablet PO SCH (13:00)
--- NOTE | 2020-10-19 15:20 | NUR ---
Patient safe for discharge per MD orders, discharge instructions reviewed with patient and and questions answered, belongings collected and sent with patient, tele and piv's DC, prescriptions called in, appointment set with Dr. Guillory 11/15/20, wheeled to lobby, picked up by in personal vehicle.
== END 2020-10-19 15:05 | disposition home health service (06) | DRG 246 ==
LOC: ER 16:26 → ED HOLD 19:54 → MED 3N 21:32
PROVIDERS: ADMIT Family Medicine; ATTEND Family Medicine
PROC: 5A2204Z Restoration of Cardiac Rhythm, Single (ICD-10-PCS; 2020-10-14)
PROC: 4A023N7 Measurement of Cardiac Sampling and Pressure, Left Heart, Percutaneous Approach (ICD-10-PCS; principal; 2020-10-16)
PROC: 027034Z Dilation of Coronary Artery, One Artery with Drug-eluting Intraluminal Device, Percutaneous Approach (ICD-10-PCS; 2020-10-16)
PROC: B2111ZZ Fluoroscopy of Multiple Coronary Arteries using Low Osmolar Contrast (ICD-10-PCS; 2020-10-16)
PROC: B2151ZZ Fluoroscopy of Left Heart using Low Osmolar Contrast (ICD-10-PCS; 2020-10-16)
PROC: 4A02XM4 Measurement of Cardiac Total Activity, External Approach (ICD-10-PCS; 2020-10-16)
PROC: 3E073KZ Introduction of Other Diagnostic Substance into Coronary Artery, Percutaneous Approach (ICD-10-PCS; 2020-10-16)
DX: I47.2 Ventricular tachycardia (principal); I21.4 Non-ST elevation (NSTEMI) myocardial infarction; E87.6 Hypokalemia; E78.00 Pure hypercholesterolemia, unspecified; E78.5 Hyperlipidemia, unspecified; I10 Essential (primary) hypertension; Z96.643 Presence of artificial hip joint, bilateral; G89.29 Other chronic pain; R26.2 Difficulty in walking, not elsewhere classified; R41.3 Other amnesia; W18.39XA Other fall on same level, initial encounter; Y93.01 Activity, walking, marching and hiking; R55 Syncope and collapse; I25.10 Atherosclerotic heart disease of native coronary artery without angina pectoris; M19.90 Unspecified osteoarthritis, unspecified site; N40.0 Benign prostatic hyperplasia without lower urinary tract symptoms; I25.2 Old myocardial infarction; Z79.82 Long term (current) use of aspirin; Y92.89 Other specified places as the place of occurrence of the external cause; Y99.8 Other external cause status; Z79.899 Other long term (current) drug therapy
CPT/HCPCS: 93306; 93458; 96365; 99291; C9600; 36415; 70450; 71045; 78451; 80053; 80061; 83605; 83735; 83880; 84484; 85025; 85610; 85730; 87040; 87081; 93005; 93017; 93308; 94799; 97116; 97161; 97530; 99152; 99153; A6258; A9500; C1725; C1751; C1760; C1769; C1874; G0378; J0461; J1644; J1650; J2001; J2250; J2785; J3010; J3475; J3480; J7030; Q9967

== ENCOUNTER 2022-06-16 11:48 | Emergency (ER) | payer BC, MEDICARE ==
[~2022-06-16] VITALS: Ht 180.3 cm; Wt 103.0 kg
[~2022-06-16 11:48] MED LIST changes: +AMIO200T67 PO; +ASPI-1265 PO; +DONE-46 PO; +NITR0.4T51 SL; +TICA90TA PO
[2022-06-16 12:11] VITALS: BP 108/68
== END 2022-06-16 17:51 | disposition left against medical advice (07) ==
LOC: ER 11:49
DX: I95.9 Hypotension, unspecified (principal); Z95.810 Presence of automatic (implantable) cardiac defibrillator; Z53.21 Procedure and treatment not carried out due to patient leaving prior to being seen by health care provider
CPT/HCPCS: 93005

== ENCOUNTER 2022-08-20 06:46 | Emergency (ER) | payer MEDICARE ==
[~2022-08-20] VITALS: Ht 180.3 cm; Wt 99.0 kg
[2022-08-20] MEDS ORDERED: iohexol 350MG/ML 100ml bottle IV ONE (09:40)
[2022-08-20 09:51] LABS: BASOPHILS % (AUTO) 0.2 % (0-1); EOSINOPHILS % (AUTO) 0.1 % (0-6); HEMATOCRIT 38.8 % (42.0-52.0); LYMPHOCYTES # (AUTO) 1.1 X10'3 (1.1-4.8); LYMPHOCYTES % (AUTO) 9.5 % (21-51); MEAN CORPUSCULAR HGB CONC 33.4 g/dL (33.0-36.5); MEAN CORPUSCULAR VOLUME 89.7 FL (78-98); MEAN PLATELET VOLUME 7.9 FL (7.4-10.4); MONOCYTES # (AUTO) 1.3 X10'3 (0-0.9); MONOCYTES % (AUTO) 10.8 % (2-12); NEUTROPHILS # (AUTO) 9.6 X10'3 (1.8-7.7); NEUTROPHILS % (AUTO) 79.4 % (42-75); PLATELET COUNT 202 X10'3 (140-440); RED BLOOD COUNT 4.33 X10'6 (4.70-6.10); RED CELL DISTRIBUTION WIDTH 14.8 % (11.5-14.5); WHITE BLOOD COUNT 12.1 X10'3 (4.5-11.0)
[2022-08-20 10:00] LABS: APTT 26 SECONDS (22-32)
[2022-08-20 10:03] LABS: ALANINE AMINOTRANSFERASE 34 U/L (12-78); ALBUMIN 3.5 G/DL (3.4-5.0); ALKALINE PHOSPHATASE 106 IU/L (46-116); ANION GAP 12 (8-16); ASPARTATE AMINO TRANSFERASE 26 U/L (10-37); BILIRUBIN,TOTAL 2.8 MG/DL (0.1-1.0); BLOOD UREA NITROGEN 23 MG/DL (7-18); BUN/CREATININE RATIO 17.6 (5.4-32.0); CALCIUM 9.5 MG/DL (8.5-10.1); CHLORIDE 106 MMOL/L (99-107); CREATININE 1.31 MG/DL (0.60-1.10); GLUCOSE 122 MG/DL (70-104); POTASSIUM 3.7 MMOL/L (3.5-5.1); SODIUM 140 MMOL/L (135-145); TOTAL CARBON DIOXIDE 22.1 MMOL/L (24-32); TOTAL PROTEIN 6.9 G/DL (6.4-8.2); eGFR 53 ML/MIN
[2022-08-20 10:10] LABS: MAGNESIUM 1.9 MG/DL (1.5-2.4)
[2022-08-20] MEDS: acetaminophen 325mg tablet PO ONE (10:18)
[2022-08-20 13:19] VITALS: BP 103/52
== END 2022-08-20 13:20 | disposition home or self-care (01) ==
LOC: ER 06:46
DX: M54.2 Cervicalgia (principal); I25.10 Atherosclerotic heart disease of native coronary artery without angina pectoris; E78.00 Pure hypercholesterolemia, unspecified; I10 Essential (primary) hypertension; I25.2 Old myocardial infarction; G89.29 Other chronic pain; Z98.890 Other specified postprocedural states; Z72.89 Other problems related to lifestyle; Z79.82 Long term (current) use of aspirin; Z79.899 Other long term (current) drug therapy
CPT/HCPCS: 36415; 70498; 80053; 83735; 83880; 84484; 85025; 85610; 85730; 93005; 99285; J3490; Q9967

== ENCOUNTER 2023-12-31 08:16 | Inpatient (IN) | payer MEDICARE, MEDICAID ==
[~2023-12-31] VITALS: Ht 177.8 cm; Wt 82.0 kg
[2023-12-31 10:10] LABS: BASOPHILS % (AUTO) 0.5 % (0-1); EOSINOPHILS # (AUTO) 0.1 X10'3 (0-0.9); EOSINOPHILS % (AUTO) 0.9 % (0-6); HEMATOCRIT 37.2 % (42.0-52.0); HEMOGLOBIN 12.5 g/dl (14.0-17.9); LYMPHOCYTES # (AUTO) 1.7 X10'3 (1.1-4.8); LYMPHOCYTES % (AUTO) 24.3 % (21-51); MEAN CORPUSCULAR HEMOGLOBIN 29.7 PG (27.0-31.0); MEAN CORPUSCULAR HGB CONC 33.7 g/dL (33.0-36.5); MEAN CORPUSCULAR VOLUME 88.3 FL (78-98); MEAN PLATELET VOLUME 7.5 FL (7.4-10.4); MONOCYTES # (AUTO) 0.9 X10'3 (0-0.9); MONOCYTES % (AUTO) 11.8 % (2-12); NEUTROPHILS # (AUTO) 4.5 X10'3 (1.8-7.7); NEUTROPHILS % (AUTO) 62.5 % (42-75); PLATELET COUNT 203 X10'3 (140-440); RED BLOOD COUNT 4.21 X10'6 (4.70-6.10); RED CELL DISTRIBUTION WIDTH 14.4 % (11.5-14.5); WHITE BLOOD COUNT 7.2 X10'3 (4.5-11.0)
[2023-12-31 10:29] LABS: ALANINE AMINOTRANSFERASE 31 U/L (12-78); ALBUMIN 2.9 G/DL (3.4-5.0); ALBUMIN/GLOBULIN RATIO 1.1 (1.1-1.5); ALKALINE PHOSPHATASE 80 IU/L (46-116); ANION GAP 9 (8-16); ASPARTATE AMINO TRANSFERASE 31 U/L (10-37); BILIRUBIN,TOTAL 2.7 MG/DL (0.1-1.0); BLOOD UREA NITROGEN 18 MG/DL (7-18); CALCIUM 8.7 MG/DL (8.5-10.1); CHLORIDE 112 MMOL/L (99-107); CREATININE 1.29 MG/DL (0.60-1.10); GLUCOSE 95 MG/DL (70-104); MAGNESIUM 1.6 MG/DL (1.5-2.4); SODIUM 143 MMOL/L (135-145); TOTAL CARBON DIOXIDE 22.3 MMOL/L (24-32); TOTAL PROTEIN 5.6 G/DL (6.4-8.2); eCRCL 46 ML/MIN; eGFR 53 ML/MIN
[2023-12-31 10:31] LABS: POTASSIUM 4.4 MMOL/L (3.5-5.1)
[2023-12-31] MEDS: LORazepam 2 mg/ml vial IV ONE (10:40)
[2023-12-31 11:22] LABS: BILIRUBIN,URINE NEGATIVE (Neg); CLARITY,URINE CLEAR (Clear); COLOR,URINE YELLOW (Yellow); GLUCOSE, URINE NEGATIVE (Neg); KETONES,URINE NEGATIVE (Neg); LEUKOCYTE ESTERASE ,URINE NEGATIVE (Neg); NITRITES, URINE NEGATIVE (Neg); OCCULT BLOOD,URINE NEGATIVE (Neg); PH,URINE 8.5 (4.8-8.0); PROTEIN,URINE NEGATIVE (Neg); UROBILINOGEN,URINE 0.2 E.U/dL (0.2-1.0)
[2023-12-31 11:25] LABS: UA COLLECTION TYPE VOIDED
[2023-12-31] MEDS ORDERED: acetaminophen 325mg tablet PO PRN (11:45)
[2023-12-31] MEDS ORDERED: ondansetron 4mg rapidly disintigrating tab PO PRN (11:45)
[2023-12-31] MEDS ORDERED: ondansetron/PF 4mg/2ml inj IV PRN (11:45)
[2023-12-31] MEDS ORDERED: diphenhydrAMINE 50 mg/ml inj IV PRN (11:45)
[2023-12-31] MEDS ORDERED: diphenhydrAMINE 25mg capsule PO PRN (11:45)
[2023-12-31] MEDS ORDERED: acetaminophen 650mg rectal suppository RC PRN (11:45)
[2023-12-31] MEDS ORDERED: magnesium hydroxide 30ml (MOM) UD suspension PO PRN (11:45)
[2023-12-31] MEDS ORDERED: mag hydrox/Alum hydrox/simeth 30ml oral suspension PO PRN (11:45)
[2023-12-31] MEDS ORDERED: bisacodyl 10mg suppository rectal RC PRN (11:45)
[2023-12-31 13:07] LABS: APTT 27 SECONDS (22-32); INR 1.2 INR; PROTHROMBIN TIME 12.4 SECONDS (9.0-12.0)
[2023-12-31] MEDS ORDERED: MULT-1085 PO (13:15)
[2023-12-31] MEDS ORDERED: ATOR-2 PO (13:15)
[2023-12-31] MEDS ORDERED: DONE10TA44 PO (13:15)
[2023-12-31] MEDS ORDERED: LOSA25TA41 PO (13:15)
[2023-12-31] MEDS ORDERED: SPIR25TA5 PO (13:15)
[2023-12-31] MEDS ORDERED: APIX5TAB3 PO (13:15)
[2023-12-31] MEDS ORDERED: MAGN400C PO (13:18)
[2023-12-31 13:19] LABS: CREATINE KINASE 36 U/L (39-308); LIPASE 30 U/L (16-77); PHOSPHORUS 3.4 MG/DL (2.3-4.5); PRO BRAIN NATRIURETIC PEPTIDE 932 PG/ML (0-450); THYROID STIMULATING HORMONE 1.24 ulU/ml (0.34-4.50)
[2023-12-31 13:31] LABS: HEMOGLOBIN A1C 5.8 % (4.5-6.2)
[2023-12-31] MEDS ORDERED: MELA1TAB52 PO (15:20)
[2023-12-31] MEDS: docusate sod 100mg capsule PO SCH (20:00)
[2023-12-31] MEDS ORDERED: temazepam 15mg capsule PO PRN (21:00)
[2024-01-01 08:54] LABS: BASOPHILS % (AUTO) 0.3 % (0-1); EOSINOPHILS % (AUTO) 0.4 % (0-6); HEMATOCRIT 38.7 % (42.0-52.0); HEMOGLOBIN 13.1 g/dl (14.0-17.9); LYMPHOCYTES # (AUTO) 1.1 X10'3 (1.1-4.8); LYMPHOCYTES % (AUTO) 15.8 % (21-51); MEAN CORPUSCULAR HEMOGLOBIN 29.4 PG (27.0-31.0); MEAN CORPUSCULAR HGB CONC 33.9 g/dL (33.0-36.5); MEAN CORPUSCULAR VOLUME 86.8 FL (78-98); MEAN PLATELET VOLUME 7.1 FL (7.4-10.4); MONOCYTES # (AUTO) 0.9 X10'3 (0-0.9); MONOCYTES % (AUTO) 13.2 % (2-12); NEUTROPHILS # (AUTO) 4.7 X10'3 (1.8-7.7); NEUTROPHILS % (AUTO) 70.3 % (42-75); PLATELET COUNT 205 X10'3 (140-440); RED BLOOD COUNT 4.46 X10'6 (4.70-6.10); RED CELL DISTRIBUTION WIDTH 14.4 % (11.5-14.5); WHITE BLOOD COUNT 6.6 X10'3 (4.5-11.0)
[2024-01-01 09:16] LABS: ALANINE AMINOTRANSFERASE 24 U/L (12-78); ALBUMIN 2.9 G/DL (3.4-5.0); ALKALINE PHOSPHATASE 94 IU/L (46-116); ANION GAP 8 (8-16); ASPARTATE AMINO TRANSFERASE 34 U/L (10-37); BLOOD UREA NITROGEN 15 MG/DL (7-18); CALCIUM 8.7 MG/DL (8.5-10.1); CHLORIDE 107 MMOL/L (99-107); CHOL/HDL RATIO 2.8 (0.00-4.99); CHOLESTEROL 90 MG/DL (0-200); CREATININE 1.07 MG/DL (0.60-1.10); GLUCOSE 109 MG/DL (70-104); HDL CHOLESTEROL 32 MG/DL (35-60); LDL CHOLESTEROL 46 MG/DL (50-100); POTASSIUM 4.2 MMOL/L (3.5-5.1); SODIUM 140 MMOL/L (135-145); TOTAL CARBON DIOXIDE 24.6 MMOL/L (24-32); TOTAL PROTEIN 5.7 G/DL (6.4-8.2); TRIGLYCERIDES 112 MG/DL (20-135); eCRCL 55 ML/MIN; eGFR 66 ML/MIN
[2024-01-01] MEDS: pantoprazole 40mg Tablet.DR PO SCH (10:39)
[2024-01-01] MEDS: furosemide 10 MG/1 ML 10ml inj IV SCH (10:43)
[2024-01-01 13:10] VITALS: BP 113/70; PULSE 87; RESP 18; TEMP 98; O2SAT 96
[2024-01-01 14:00] VITALS: RESP 18; O2SAT 96
[2024-01-01 18:00] VITALS: BP 127/73; PULSE 83; RESP 18; TEMP 97; O2SAT 94
[2024-01-01 20:00] VITALS: RESP 18; O2SAT 94
[2024-01-01] MEDS: morphine 2 MG/ML inj. syringe IV PRN (21:30)
[2024-01-01 22:00] VITALS: BP 119/71; PULSE 85; RESP 18; TEMP 98.6; O2SAT 95
[2024-01-02 06:00] VITALS: BP 106/74; PULSE 73; RESP 24; TEMP 98.6; O2SAT 96
[2024-01-02 06:35] LABS: BASOPHILS % (AUTO) 0.4 % (0-1); EOSINOPHILS # (AUTO) 0.1 X10'3 (0-0.9); EOSINOPHILS % (AUTO) 0.7 % (0-6); HEMATOCRIT 39.1 % (42.0-52.0); HEMOGLOBIN 13.5 g/dl (14.0-17.9); LYMPHOCYTES # (AUTO) 1.9 X10'3 (1.1-4.8); LYMPHOCYTES % (AUTO) 22.9 % (21-51); MEAN CORPUSCULAR HEMOGLOBIN 29.8 PG (27.0-31.0); MEAN CORPUSCULAR HGB CONC 34.4 g/dL (33.0-36.5); MEAN CORPUSCULAR VOLUME 86.7 FL (78-98); MEAN PLATELET VOLUME 7.4 FL (7.4-10.4); MONOCYTES # (AUTO) 1.1 X10'3 (0-0.9); MONOCYTES % (AUTO) 12.6 % (2-12); NEUTROPHILS # (AUTO) 5.3 X10'3 (1.8-7.7); NEUTROPHILS % (AUTO) 63.4 % (42-75); PLATELET COUNT 212 X10'3 (140-440); RED BLOOD COUNT 4.51 X10'6 (4.70-6.10); RED CELL DISTRIBUTION WIDTH 14.2 % (11.5-14.5); WHITE BLOOD COUNT 8.4 X10'3 (4.5-11.0)
[2024-01-02 06:43] LABS: ALANINE AMINOTRANSFERASE 28 U/L (12-78); ALBUMIN 2.9 G/DL (3.4-5.0); ALKALINE PHOSPHATASE 89 IU/L (46-116); ANION GAP 8 (8-16); ASPARTATE AMINO TRANSFERASE 27 U/L (10-37); BILIRUBIN,TOTAL 2.6 MG/DL (0.1-1.0); BLOOD UREA NITROGEN 19 MG/DL (7-18); BUN/CREATININE RATIO 16.1 (10.0-20.0); CALCIUM 8.8 MG/DL (8.5-10.1); CHLORIDE 105 MMOL/L (99-107); CREATININE 1.18 MG/DL (0.60-1.10); GLUCOSE 110 MG/DL (70-104); SODIUM 139 MMOL/L (135-145); TOTAL CARBON DIOXIDE 25.8 MMOL/L (24-32); TOTAL PROTEIN 5.9 G/DL (6.4-8.2); eCRCL 50 ML/MIN; eGFR 59 ML/MIN
[2024-01-02 07:52] VITALS: RESP 12
[2024-01-02] MEDS: multivitamins, therapeutics tablet PO SCH (08:19)
[2024-01-02] MEDS: apixaban 5mg tablet PO SCH (08:19)
[2024-01-02] MEDS: losartan 25mg tablet PO SCH (08:19)
[2024-01-02] MEDS: spironolactone 25 MG tablet PO SCH (08:21)
[2024-01-02] MEDS: ezetimibe 10mg tablet PO SCH (08:23)
[2024-01-02] MEDS: magnesium oxide 400mg tablet PO SCH (08:23)
[2024-01-02 10:00] VITALS: BP 93/56; PULSE 96; RESP 16; TEMP 97.1; O2SAT 95
[2024-01-02] MEDS: HYDROcodone/acetaminophen 5mg/325mg tablet PO PRN (18:03)
[2024-01-02 20:00] VITALS: RESP 20; O2SAT 98
[2024-01-02] MEDS: Melatonin 3mg tablet PO SCH (21:56)
[2024-01-02] MEDS: atorvastatin 20mg tablet PO SCH (21:57)
[2024-01-02] MEDS: tamsulosin 0.4mg capsule PO SCH (21:57)
[2024-01-02] MEDS: donepezil 5mg tablet PO SCH (21:57)
[2024-01-03 06:00] VITALS: BP 108/59; PULSE 90; RESP 20; TEMP 97.8; O2SAT 98
[2024-01-03 06:08] LABS: BASOPHILS % (AUTO) 0.2 % (0-1); EOSINOPHILS % (AUTO) 0.2 % (0-6); HEMATOCRIT 40.8 % (42.0-52.0); LYMPHOCYTES # (AUTO) 1.7 X10'3 (1.1-4.8); LYMPHOCYTES % (AUTO) 17.1 % (21-51); MEAN CORPUSCULAR HEMOGLOBIN 29.9 PG (27.0-31.0); MEAN CORPUSCULAR HGB CONC 34.3 g/dL (33.0-36.5); MEAN CORPUSCULAR VOLUME 87.2 FL (78-98); MEAN PLATELET VOLUME 7.8 FL (7.4-10.4); MONOCYTES # (AUTO) 1.8 X10'3 (0-0.9); MONOCYTES % (AUTO) 17.5 % (2-12); NEUTROPHILS # (AUTO) 6.6 X10'3 (1.8-7.7); PLATELET COUNT 207 X10'3 (140-440); RED BLOOD COUNT 4.68 X10'6 (4.70-6.10); RED CELL DISTRIBUTION WIDTH 14.4 % (11.5-14.5); WHITE BLOOD COUNT 10.1 X10'3 (4.5-11.0)
[2024-01-03 06:11] LABS: ALBUMIN 2.9 G/DL (3.4-5.0); ALBUMIN/GLOBULIN RATIO 0.9 (1.1-1.5); ANION GAP 9 (8-16); ASPARTATE AMINO TRANSFERASE 18 U/L (10-37); BILIRUBIN,TOTAL 2.6 MG/DL (0.1-1.0); BLOOD UREA NITROGEN 27 MG/DL (7-18); BUN/CREATININE RATIO 22.1 (10.0-20.0); CALCIUM 8.9 MG/DL (8.5-10.1); CHLORIDE 104 MMOL/L (99-107); CREATININE 1.22 MG/DL (0.60-1.10); GLUCOSE 127 MG/DL (70-104); SODIUM 138 MMOL/L (135-145); TOTAL CARBON DIOXIDE 25.4 MMOL/L (24-32); TOTAL PROTEIN 6.1 G/DL (6.4-8.2); eCRCL 48 ML/MIN; eGFR 57 ML/MIN
[2024-01-03 06:12] LABS: ALANINE AMINOTRANSFERASE 22 U/L (12-78); ALKALINE PHOSPHATASE 94 IU/L (46-116)
[2024-01-03 06:30] LABS: TOTAL CELLS COUNTED 100
[2024-01-03 06:31] LABS: ACANTHOCYTES FEW; BURR CELLS FEW; ELLIPTOCYTES FEW; PLATELET ESTIMATE NORMAL
[2024-01-03] MEDS ORDERED: dextrose 5%-1/2 normal saline 1,000 ML IV SCH (09:55)
[2024-01-03 10:00] VITALS: BP 90/60; PULSE 99; RESP 17; TEMP 97.1; O2SAT 95
[2024-01-03 11:00] VITALS: RESP 18; O2SAT 96
[2024-01-03] MEDS: losartan 25mg tablet PO SCH (11:06)
[2024-01-03 11:57] LABS: MAGNESIUM 1.8 MG/DL (1.5-2.4)
[2024-01-03 18:00] VITALS: BP 90/59; PULSE 93; RESP 18; TEMP 97; O2SAT 96
[2024-01-03 20:00] VITALS: RESP 18; O2SAT 96
[2024-01-03] MEDS: docusate sodium 100mg/10ml UD cup PO SCH (21:37)
[2024-01-03 22:00] VITALS: BP 95/63; PULSE 88; RESP 16; TEMP 97.8; O2SAT 95
[2024-01-04] VITALS (7 sets, daily range): BP systolic 102–123; BP diastolic 63–76; PULSE 56–90; RESP 16–28; TEMP 97.5–98.5; O2SAT 94–99
[2024-01-04 06:40] LABS: BASOPHILS % (AUTO) 0.2 % (0-1); EOSINOPHILS % (AUTO) 0.2 % (0-6); HEMATOCRIT 42.4 % (42.0-52.0); HEMOGLOBIN 14.5 g/dl (14.0-17.9); LYMPHOCYTES # (AUTO) 1.8 X10'3 (1.1-4.8); LYMPHOCYTES % (AUTO) 16.1 % (21-51); MEAN CORPUSCULAR HEMOGLOBIN 29.5 PG (27.0-31.0); MEAN CORPUSCULAR HGB CONC 34.1 g/dL (33.0-36.5); MEAN CORPUSCULAR VOLUME 86.5 FL (78-98); MEAN PLATELET VOLUME 7.9 FL (7.4-10.4); MONOCYTES # (AUTO) 1.5 X10'3 (0-0.9); MONOCYTES % (AUTO) 13.5 % (2-12); NEUTROPHILS # (AUTO) 7.7 X10'3 (1.8-7.7); PLATELET COUNT 234 X10'3 (140-440); RED CELL DISTRIBUTION WIDTH 14.2 % (11.5-14.5); WHITE BLOOD COUNT 10.9 X10'3 (4.5-11.0)
[2024-01-04 07:03] LABS: ANION GAP 8 (8-16); BILIRUBIN,TOTAL 2.8 MG/DL (0.1-1.0); BLOOD UREA NITROGEN 32 MG/DL (7-18); BUN/CREATININE RATIO 25.8 (10.0-20.0); CALCIUM 9.1 MG/DL (8.5-10.1); CHLORIDE 104 MMOL/L (99-107); CREATININE 1.24 MG/DL (0.60-1.10); GLUCOSE 130 MG/DL (70-104); MAGNESIUM 1.9 MG/DL (1.5-2.4); POTASSIUM 3.8 MMOL/L (3.5-5.1); SODIUM 141 MMOL/L (135-145); TOTAL CARBON DIOXIDE 28.7 MMOL/L (24-32); TOTAL PROTEIN 6.5 G/DL (6.4-8.2); eCRCL 47 ML/MIN; eGFR 56 ML/MIN
[2024-01-04 07:04] LABS: ALANINE AMINOTRANSFERASE 24 U/L (12-78); ALBUMIN/GLOBULIN RATIO 0.9 (1.1-1.5); ALKALINE PHOSPHATASE 94 IU/L (46-116); ASPARTATE AMINO TRANSFERASE 20 U/L (10-37)
[2024-01-04] MEDS: LORazepam 2 mg/ml vial IV PRN (10:22)
[2024-01-04] MEDS: diazepam inj 5 MG/ML inj. IV PRN (11:35)
[2024-01-04 12:24] LABS: D-DIMER 0.43 MG/L FEU (0-0.50)
[2024-01-04] MEDS: ringers solution, lacted 1,000 ML IV ONE (12:26)
[2024-01-04 12:34] LABS: PRO BRAIN NATRIURETIC PEPTIDE 1677 PG/ML (0-450)
[2024-01-04] MEDS: acetaminophen 325mg tablet PO PRN (23:31)
[2024-01-05] VITALS (7 sets, daily range): BP systolic 94–114; BP diastolic 55–77; PULSE 73–94; RESP 18–22; TEMP 97.3–98.4; O2SAT 93–99
[2024-01-05 07:00] LABS: BASOPHILS % (AUTO) 0.4 % (0-1); EOSINOPHILS % (AUTO) 0.4 % (0-6); HEMATOCRIT 41.4 % (42.0-52.0); HEMOGLOBIN 14.2 g/dl (14.0-17.9); LYMPHOCYTES # (AUTO) 2.2 X10'3 (1.1-4.8); LYMPHOCYTES % (AUTO) 22.1 % (21-51); MEAN CORPUSCULAR HEMOGLOBIN 29.8 PG (27.0-31.0); MEAN CORPUSCULAR HGB CONC 34.4 g/dL (33.0-36.5); MEAN CORPUSCULAR VOLUME 86.7 FL (78-98); MEAN PLATELET VOLUME 7.9 FL (7.4-10.4); MONOCYTES # (AUTO) 1.2 X10'3 (0-0.9); MONOCYTES % (AUTO) 12.1 % (2-12); NEUTROPHILS # (AUTO) 6.4 X10'3 (1.8-7.7); PLATELET COUNT 236 X10'3 (140-440); RED BLOOD COUNT 4.77 X10'6 (4.70-6.10); RED CELL DISTRIBUTION WIDTH 14.3 % (11.5-14.5); WHITE BLOOD COUNT 9.8 X10'3 (4.5-11.0)
[2024-01-05 07:03] LABS: ALANINE AMINOTRANSFERASE 25 U/L (12-78); ALBUMIN 2.7 G/DL (3.4-5.0); ALBUMIN/GLOBULIN RATIO 0.8 (1.1-1.5); ALKALINE PHOSPHATASE 83 IU/L (46-116); ANION GAP 6 (8-16); ASPARTATE AMINO TRANSFERASE 34 U/L (10-37); BILIRUBIN,TOTAL 2.1 MG/DL (0.1-1.0); BLOOD UREA NITROGEN 33 MG/DL (7-18); BUN/CREATININE RATIO 30.8 (10.0-20.0); CALCIUM 8.7 MG/DL (8.5-10.1); CHLORIDE 106 MMOL/L (99-107); CREATININE 1.07 MG/DL (0.60-1.10); GLUCOSE 114 MG/DL (70-104); POTASSIUM 3.9 MMOL/L (3.5-5.1); SODIUM 140 MMOL/L (135-145); TOTAL PROTEIN 6.1 G/DL (6.4-8.2); eCRCL 55 ML/MIN; eGFR 66 ML/MIN
[2024-01-05] MEDS ORDERED: docusate sodium 100mg/10ml UD cup PO PRN (10:40)
[2024-01-05] MEDS: lactose-reduced food (Ensure Enlive) - 237ml bottle PO SCH (18:00)
[2024-01-06 06:00] VITALS: BP 106/73; PULSE 82; RESP 18; TEMP 95.9; O2SAT 96
[2024-01-06 08:00] VITALS: RESP 18; O2SAT 96
[2024-01-06 12:00] VITALS: BP 86/59; PULSE 73; RESP 18; TEMP 97.2; O2SAT 95
== END 2024-01-06 16:00 | DRG 682 ==
LOC: ER 08:17 → ED HOLD 11:51 → SUR 3N 01-01 13:05
PROVIDERS: ADMIT Family Medicine; ATTEND Family Medicine
DX: N17.9 Acute kidney failure, unspecified (principal); I50.23 Acute on chronic systolic (congestive) heart failure; E87.20 Acidosis, unspecified; E86.0 Dehydration; I11.0 Hypertensive heart disease with heart failure; G30.9 Alzheimer's disease, unspecified; F02.80 Dementia in other diseases classified elsewhere, unspecified severity, without behavioral disturbance, psychotic disturbance, mood disturbance, and anxiety; I25.10 Atherosclerotic heart disease of native coronary artery without angina pectoris; D64.9 Anemia, unspecified; E88.09 Other disorders of plasma-protein metabolism, not elsewhere classified; G89.29 Other chronic pain; Z66 Do not resuscitate; E78.00 Pure hypercholesterolemia, unspecified; N40.0 Benign prostatic hyperplasia without lower urinary tract symptoms; Z96.643 Presence of artificial hip joint, bilateral; I25.2 Old myocardial infarction; Z79.82 Long term (current) use of aspirin; Z79.899 Other long term (current) drug therapy; Z95.0 Presence of cardiac pacemaker; Z95.5 Presence of coronary angioplasty implant and graft
CPT/HCPCS: 36415; 70450; 71045; 80053; 80061; 81003; 82550; 83036; 83690; 83735; 83880; 84100; 84443; 84484; 85007; 85025; 85379; 85610; 85730; 87081; 92508; 92616; 93005; 93306; 96374; 97161; 97530; 99285; A6213; A6590; G0378; J1940; J2060; J2270; J3360; J7120